=== PATIENT | male | born 1940 | race Caucasian/White ===

== ENCOUNTER 2019-01-03 09:49 | Day surgery (SDC) | payer MEDICARE, OTHER ==
[~2019-01-03] VITALS: Ht 177.8 cm; Wt 90.9 kg
[2019-01-03 10:33] LABS: ANION GAP 7.9 mmol/L (8-16); CALCIUM 9.4 mg/dL (8.5-10.1); CARBON DIOXIDE 30.5 mmol/L (21.0-32.0); CREATININE - SERUM 1.4 mg/dL (0.6-1.3); POTASSIUM - SERUM 4.4 mmol/L (3.5-5.1)
[2019-01-03] MEDS ORDERED: OMEPRAZOLE20 M1 PO (10:42)
[2019-01-03] MEDS ORDERED: COZAAR100 MG PO (10:43)
[2019-01-03] MEDS ORDERED: PRAVACHOL20 MG PO (10:43)
[2019-01-03] MEDS ORDERED: SINGULAIR10 MG PO (10:44)
[2019-01-03] MEDS ORDERED: NORVASC5 MG PO (10:44)
[2019-01-03] MEDS ORDERED: BAYER CHEWABLE81 MG PO (10:44)
[2019-01-03] MEDS ORDERED: HYDROCHLOROTH12.5 M1 PO (10:45)
[2019-01-03 10:59] VITALS: BP 133/80; Ht 177.8 cm; Wt 90.9 kg
[2019-01-03 11:47] LABS: BASOPHILS 0.8 % (0-2); EOSINOPHILS 1.8 % (0-7); HEMATOCRIT 43.7 % (42.0-54.0); HEMOGLOBIN 15.4 g/dL (13.5-17.5); IMMATURE GRANULOCYTES 0.3 % (0-5); LYMPHOCYTES 33.4 % (15-50); MCH 32.2 pg (26.0-34.0); MCHC 35.2 g/dL (31.0-37.0); MCV 91.2 fL (80.0-100.0); MEAN PLATELET VOLUME 10.1 fL (7.4-10.4); NEUTROPHILS 56.7 % (40-80); PLATELET COUNT 176 10x3/uL (130-400); RBC 4.79 10x6/uL (4.20-6.10); RDW 12.6 % (11.5-14.5); WBC 7.4 10x3/uL (4.8-10.8)
--- NOTE | 2019-01-03 12:49 | NUR ---
DC INSTRUCTIONS GIVEN TO PT/FAMILY. STATE UNDERSTANDING. DC'D IV CATH FULLY INTACT.
--- NOTE | 2019-01-03 13:02 | NUR ---
PT LEFT UNIT VIA WC AT 1255
--- NOTE | 2019-01-05 18:24 | OP ---
PATIENT NAME: JOSHUA HARRELL MEDICAL RECORD: [id number] :38 LOCATION:[facility] ADMISSION DATE: SURGEON: SANTIAGO MENG DO DATE OF OPERATION: 01/03/2019 PROCEDURE: EGD with biopsies. INDICATIONS FOR PROCEDURE: Dysphagia and GERD. SCOPE: Olympus video gastroscope. MEDICATIONS: Propofol 230 mg IV per anesthesia. ESTIMATED BLOOD LOSS: Minimal. COMPLICATIONS: None. FINDINGS: Informed consent was given. The patient was made comfortable with the above medication. After reaching an adequate level of sedation by slow IV push, the patient was placed on his left side. The endoscope was advanced under direct visualization through the mouth to the second portion of the duodenum. The entire esophagus appeared normal. At the GE junction, there were minor changes consistent with LA class A reflux-induced esophagitis. The endoscope was advanced beyond the GE junction into the stomach and retroflexed to view the cardia, where a small sliding hiatal hernia was present. The entire mucosa of the stomach appeared normal. There were a few benign fundic type gland polyps located in the body of the stomach. Random cold forceps biopsies were taken from the antrum to rule out the presence of H. pylori and to submit for histopathology. The endoscope was advanced beyond the pylorus into the duodenum, which appeared normal down to the second portion. The endoscope was withdrawn from the patient. The patient tolerated the procedure well and there were no complications. IMPRESSIONS: 1. LA class A reflux-induced esophagitis. 2. Small sliding hiatal hernia. 3. Benign fundic gland gastric polyps. PLAN AND RECOMMENDATIONS: 1. Discharge home when recovery parameters are met. 2. GERD diet and reflux precautions. 3. Continue current medications. 4. Can consider further workup to include a barium esophagram and esophageal manometry if the patient wishes. In discussions with him preoperatively, it does not sound like he would wish to proceed any further. We will be available if he changes his mind or symptoms worsen. Alternatively, we could consider a modified barium swallow as well as his symptoms seem to be located to the throat area. TRANSINT:[id number] Voice Confirmation ID: [id number] DOCUMENT ID: [id number] OPERATIVE REPORT [id number] JOSHUA HARRELL SANTIAGO MENG DO at 3225 CC: [id number] DICTATION DATE: 01/03/19 1134 X RAY SERVICE ENGINEER: 01/03/19 1144 [facility] 01/03/19 [place] [id number] [place] [id number]
== END 2019-01-03 12:55 | disposition home or self-care (01) ==
LOC: D.OPS 09:49
PROVIDERS: Anesthesiology; ATTEND Internal Medicine Gastroenterology
DX: R13.10 Dysphagia, unspecified (principal); K21.9 Gastro-esophageal reflux disease without esophagitis